=== PATIENT | female | born 1980 | race Caucasian/White ===

== ENCOUNTER 2017-01-28 22:05 | Emergency (ER) | payer BC ==
[2017-01-28 22:21] VITALS: BP 132/81
[2017-01-28] MEDS ORDERED: Sodium Chloride 0.9% 10 ML Syringe FLUSH PRN (22:44)
--- NOTE | 2017-01-29 00:29 | EDM.PDOC ---
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 She has been gone for a few days and she had rough intercourse with her and shortly after she had some bleeding. There was no clots or tissue. She has very mild cramping. She has no other symptoms such as fever, chills, cough, chest pain, shortness of breath or abdominal pain. She has no dysuria or hematuria. Onset: Sudden Duration: Hour(s): Location: Reports: Pelvis Quality: Reports: Other (cramp) Severity: Mild Improves with: Reports: None Worsens with: Reports: None Context: Reports: Activity (after intercourse) Associated Symptoms: Reports: No Other Symptoms Lower Abdominal Pain Score (Numeric/FACES): 1 - Related Data Allergies Allergy/AdvReac Type Severity Reaction Status Date / Time No Known Allergies Allergy Verified 01/28/17 22:21 Home Meds: Home Meds ARIPiprazole [Abilify] 10 mg PO DAILY 01/28/17 [History] clomiPRAMINE HCl [Clomipramine HCl] 50 mg PO DAILY 01/28/17 [History] fluvoxaMINE [Luvox] 300 mg PO DAILY 01/28/17 [History] Past Medical History - Past Health History Medical/Surgical History: Denies Medical/Surgical History Social & Family History - Tobacco Use Smoking Status *Q: Never Smoker - Caffeine Use Caffeine Use: Reports: None - Recreational Drug Use Recreational Drug Use: No ED ROS GENERAL - Review of Systems Review Of Systems: See Below Constitutional: Reports: No Symptoms HEENT: Reports: No Symptoms Respiratory: Reports: No Symptoms Cardiovascular: Reports: No Symptoms Endocrine: Reports: No Symptoms GI/Abdominal: Reports: No Symptoms : Reports: Other (Vaginal bleeding) Musculoskeletal: Reports: No Symptoms ED EXAM - Physical Exam Exam: See Below Exam Limited By: No Limitations General Appearance: Alert, No Apparent Distress Ears: Normal External Exam Nose: Normal Inspection Head: Atraumatic, Normocephalic Neck: Normal Inspection Respiratory/Chest: No Respiratory Distress, Lungs Clear, Normal Breath Sounds Cardiovascular: Regular Rate, Rhythm, No Edema, No Murmur GI/Abdominal: Soft, Non-Tender, Gravid Uterus Course - Vital Signs Last Recorded V/S: Last Vital Signs Temp 98.7 F 01/28/17 22:17 Pulse 76 01/28/17 22:17 Resp 16 01/28/17 22:17 BP 132/81 01/28/17 22:17 Pulse Ox 100 01/28/17 22:17 - Orders/Labs/Meds Orders: Active Orders 24 hr Category Date Time Status Cardiac Monitoring [RC] . DIRECTED Care 01/28/17 22:44 Active Pelvic Exam, Set Up [RC] ASDIRECTED Care 01/28/17 22:46 Active Peripheral IV Care [RC] . DIRECTED Care 01/28/17 22:45 Active OB Ltd 1 or More Fetus [US] Stat Exams 01/28/17 22:46 Taken ABO/RH TYPE [BBK] Stat Lab 01/28/17 23:10 Received Sodium Chloride 0.9% [Saline Flush] Med 01/28/17 22:44 Active 10 ml FLUSH ASDIRECTED PRN Peripheral IV Insertion Adult [OM.PC] Stat Oth 01/28/17 22:44 Ordered Medication Orders Sodium Chloride (Saline Flush) 10 ml FLUSH ASDIRECTED PRN PRN Reason: Keep Vein Open Labs: Laboratory Tests 01/28/17 Range/Units 23:10 WBC 9.45 (3.98-10.04) K/mm3 RBC 4.70 (3.98-5.22) M/mm3 Hgb 13.4 (11.2-15.7) gm/L Hct 38.2 (34.1-44.9) % MCV 81.3 (79.4-94.8) fl MCH 28.5 (25.6-32.2) pg MCHC 35.1 (32.2-35.5) g/dl RDW Std Deviation 38.7 (36.4-46.3) fL Plt Count 227 (182-369) K/mm3 MPV 9.8 (9.4-12.3) fl Neut % (Auto) 56.4 (34.0-71.1) % Lymph % (Auto) 32.9 (19.3-51.7) % Adams % (Auto) 6.2 (4.7-12.5) % Eos % (Auto) 3.2 (0.7-5.8) Baso % (Auto) 0.1 (0.1-1.2) % Neut # (Auto) 5.33 (1.56-6.13) K/mm3 Lymph # (Auto) 3.11 (1.18-3.74) K/mm3 Adams # (Auto) 0.59 H (0.24-0.36) K/mm3 Eos # (Auto) 0.30 (0.04-0.36) K/mm3 Baso # (Auto) 0.01 (0.01-0.08) K/mm3 Manual Slide Review Normal smear Meds: Medications Generic Name Dose Route Start Last Admin Trade Name Freq PRN Reason Stop Dose Admin Sodium Chloride 10 ml 01/28/17 22:44 Saline Flush FLUSH ASDIRECTED PRN Keep Vein Open - Re-Assessments/Exams Free Text/Narrative Re-Assessment/Exam: 01/29/17 00:27 I ordered an IV saline lock, labs and an US. Her CBC looks good. Her blood type is O positive. Her US shows gestational age by ultrasound 15 weeks 2 days. NEGAR July 20. Estimated weight 121grams. There is no problems with the placenta. I will have her do pelvic rest and follow up with Dr Ayers. Departure - Departure Time of Disposition: 00:30 Disposition: Home, Self-Care 01 Condition: Good Clinical Impression: Vaginal bleeding before 22 weeks gestation Qualifiers: Weeks of gestation: 15 weeks Qualified Code(s): Z3A.15 - 15 weeks gestation of - Discharge Information Referrals: Maria E Ayers MD [Primary Care Provider] - 1 Week Forms: ED Department Discharge Additional Instructions: Pelvic rest until you see Dr Ayers. No sexual intercourse and no heavy lifting. Please return if you have more bleeding or pain. - My Orders Last 24 Hours: My Active Orders 01/28/17 22:44 Cardiac Monitoring [RC] . DIRECTED Sodium Chloride 0.9% [Saline Flush] 10 ml FLUSH ASDIRECTED PRN Peripheral IV Insertion Adult [OM.PC] Stat 01/28/17 22:45 Peripheral IV Care [RC] . DIRECTED 01/28/17 22:46 Pelvic Exam, Set Up [RC] ASDIRECTED OB Ltd 1 or More Fetus [US] Stat 01/28/17 23:10 ABO/RH TYPE [BBK] Stat - Assessment/Plan Last 24 Hours: My Active Orders 01/28/17 22:44 Cardiac Monitoring [RC] . DIRECTED Sodium Chloride 0.9% [Saline Flush] 10 ml FLUSH ASDIRECTED PRN Peripheral IV Insertion Adult [OM.PC] Stat 01/28/17 22:45 Peripheral IV Care [RC] . DIRECTED 01/28/17 22:46 Pelvic Exam, Set Up [RC] ASDIRECTED OB Ltd 1 or More Fetus [US] Stat 01/28/17 23:10 ABO/RH TYPE [BBK] Stat
--- NOTE | 2017-01-29 10:14 | US ---
Limited obstetrical ultrasound: Multiple real-time images were obtained transabdominally. Comparison: No previous study. Dates: LMP: ? Current ultrasound: NEGAR 07/20/17, gestational age 15 weeks 2 days presentation: Cephalic Placenta: Posterior with no findings of placenta previa or placental abruption Amniotic fluid: Amniotic fluid appears within normal limits. Measurements: BPD: 2.81 cm - 15 weeks 0 days Head circumference: 11.24 cm - 15 weeks 3 days Abdominal circumference: 9.18 cm - 15 weeks 2 days Femur length: 1.80 cm - 15 weeks 2 days Estimated weight: 121 g (4 ounces), estimated weight at the 72nd percentile for age Heart rate: 146 bpm Cervical length: 3.7 cm Maternal ovaries are within normal limits. Impression: 1. Single intrauterine fetus. Dates as noted above. 2. Posterior placenta with no findings of placenta previa or abruption. 3. Nothing acute is appreciated on obstetrical ultrasound exam. Diagnostic code #1 I agree with preliminary report issued by [facility] (ad report finalized on 01/29/17, 12:56 AM Central Time)
== END 2017-01-29 00:43 | disposition home or self-care (01) ==
LOC: JD.ED 22:05
DX: O20.9 Hemorrhage in early pregnancy, unspecified (principal); Z79.899 Other long term (current) drug therapy; Z3A.15 15 weeks gestation of pregnancy
CPT/HCPCS: 36415; 76815; 76815-26; 85025; 86900; 86901; 99283; 99284-25

== ENCOUNTER 2017-01-30 07:38 | Emergency (ER) | payer BC ==
[2017-01-30] MEDS ORDERED: Dextrose 5%-0.9% NaCl 1,000 ML IV SCH (07:45)
[2017-01-30 07:48] VITALS: BP 134/86
--- NOTE | 2017-01-30 07:51 | EDM.PDOC ---
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 States bleeding was noticed after having a fairly large hard constipated stools morning. Sometimes she has a Lori there is some bleeding with wiping. She is about 15 weeks gestation by ultrasound done 2 days ago he was 15 weeks and 2 days therefore she is 15 weeks and 4 days at this time. movement appreciated on ultrasound. If the bleeding is coming from the vagina or the rectum. She is recognized that she is significantly constipated. She is taking MiraLAX once daily. Plan will have a look with the speculum see if we can identify source of bleeding she may well have an anal fissure or hemorrhoids etc. Onset: Unknown/Unsure, Other (Eating from the perineum perirectal or vagina has been going on off and on for the last several weeks.) Onset Date: 01/30/17 Onset Time: 07:00 (With bowel movement this morning) Duration: Minutes: Location: Reports: Other Quality: Reports: Dull (Dull achy pressure discomfort across the lower abdomen) Severity: Mild Improves with: Reports: None Worsens with: Reports: None, Other, Movement (Bleeding stops spontaneously.) Context: Reports: Other (Bowel movement). Denies: Activity, Exercise, Lifting, Sick Contact, Trauma Associated Symptoms: Reports: No Other Symptoms Treatments RECORD MAKER: Reports: Other (see below) (None.) Lower Abdomen Pain Score (Numeric/FACES): 1 - Related Data Allergies Allergy/AdvReac Type Severity Reaction Status Date / Time No Known Allergies Allergy Verified 01/30/17 07:43 Home Meds: Home Meds ARIPiprazole [Abilify] 10 mg PO DAILY 01/28/17 [History] clomiPRAMINE HCl [Clomipramine HCl] 50 mg PO DAILY 01/28/17 [History] fluvoxaMINE [Luvox] 300 mg PO DAILY 01/28/17 [History] Past Medical History - Past Health History Medical/Surgical History: Denies Medical/Surgical History : 1 Para: 0 Social & Family History - Tobacco Use Smoking Status *Q: Never Smoker - Caffeine Use Caffeine Use: Reports: None - Recreational Drug Use Recreational Drug Use: No - Living Situation & Occupation Living situation: Reports: Occupation: Unemployed ED ROS GENERAL - Review of Systems Review Of Systems: See Below Constitutional: Reports: No Symptoms HEENT: Reports: No Symptoms Respiratory: Reports: No Symptoms Cardiovascular: Reports: No Symptoms Endocrine: Reports: No Symptoms GI/Abdominal: Reports: Abdominal Pain, Constipation : Reports: Other (Not sure she's bleeding per vagina or not. She is 15 weeks and 4 days gestation. 1 para 0) Musculoskeletal: Reports: Back Pain Skin: Reports: No Symptoms Neurological: Reports: No Symptoms Psychiatric: Reports: No Symptoms Hematologic/Lymphatic: Reports: No Symptoms Immunologic: Reports: No Symptoms ED EXAM - Physical Exam Exam: See Below Exam Limited By: No Limitations General Appearance: Alert, WD/WN, No Apparent Distress GI/Abdominal Exam: Normal Bowel Sounds, Soft, Non-Tender, No Organomegaly, Other (Gravid uterus palpable 3cm above the pubic symphysis compatible with 15 week gestation.) Rectal Exam: Normal Exam (There is a small anal fissure at the 12 o'clock position with no active bleeding present.). No: Decreased Rectal Tone, Fecal Impaction, Heme + Stool, Heme - Stool, Hemorrhoids, Perirectal Abscess (Female) Exam: Cervical Lesions (Cervical erosions are evident circumferentially around the cervical os. These were cauterized with silver nitrate. They are very superficial there was several old blood clots but are small in stringy in the vagina that were removed with 4 x 4 ring forceps. The vertex is otherwise closed.), Enlarged Uterus (Correlates with 15 week gestation.) Heart Tones: Present Movement: Active Back Exam: Normal Inspection, Full Range of Motion. No: CVA Tenderness (L), CVA Tenderness (R) Extremities: Normal Inspection, Normal Range of Motion, Non-Tender, Normal Capillary Refill Neurological: Alert, Oriented, CN II-XII Intact, Normal Cognition, Normal Gait Psychiatric: Normal Affect, Normal Mood Skin Exam: Warm, Dry, Intact, Normal Color, No Rash Course - Vital Signs Last Recorded V/S: Last Vital Signs Temp 36.4 C 01/30/17 07:44 Pulse 91 01/30/17 07:44 Resp 16 01/30/17 07:44 BP 134/86 01/30/17 07:44 Pulse Ox 98 01/30/17 07:44 - Orders/Labs/Meds Orders: Active Orders 24 hr Category Date Time Status CBC WITH MANUAL DIFF [HEME] Stat Lab 01/30/17 07:41 Stop Req COMPREHENSIVE METABOLIC PN,CMP [CHEM] Stat Lab 01/30/17 07:41 Stop Req HCG QUANTITATIVE,SERUM [CHEM] Stat Lab 01/30/17 07:41 Stop Req URINALYSIS W/MICROSCOPIC [UA W/MICROSCOPIC] [URIN] Stat Lab 01/30/17 08:05 Received Meds: Medications Discontinued Medications Generic Name Dose Route Start Last Admin Trade Name Marleny PRN Reason Stop Dose Admin Dextrose/Sodium Chloride 1,000 mls @ 150 mls/hr 01/30/17 07:45 Dextrose 5%-Normal Saline IV ASDIRECTED WILEY - Radiology Interpretation Free Text/Narrative:: 36-year-old female who is 1 para 0 presents to the ED with bleeding from the perineum either perirectal or vaginal area she is not sure. If bleeding this morning seemed to occur after having a Bharath suggesting inguinal source of bleeding. She is badly constipated and has been for a lengthy period of time. Using MiraLAX powder 17 g daily. Bleeding has stopped spontaneously but is noted mostly with wiping but drips into the toilet as well after bowel movement. Into the ED 2 days ago had a complete ultrasound done which showed 15 weeks and today week gestation with passage posterior placenta and no abnormalities appreciated on ultrasound. Plan I'm going to go ahead and have a look with the speculum to see if there is no bleeding from the vagina. The anus to see if there is an anal fissure or internal hemorrhoids with anal scalp if needed. Urinalysis ordered. - Re-Assessments/Exams Free Text/Narrative Re-Assessment/Exam: 01/30/17 08:21 speculum exam reveals cervical erosions in 3 or 4 areas were cauterized with silver nitrate. The cervical os is closed. There was a few stringy clots within the vagina that were removed by ring forceps and 4 x 4. The anus itself has a small anal fissure at these 12 o'clock position but is not actively bleeding. No external hemorrhoids and no internal hemorrhoids were appreciated on examination. Patient reassured at length. We'll bump her MiraLAX to 2 scoops one day 1 scoop the next day and alternating in this fashion to keep her bowels more regular. Ultrasound reveals very active fetus. At this time nothing serious to worry about. Follow-up with DIRECTOR INFORMATION as planned. Departure - Departure Time of Disposition: 08:16 Disposition: Home, Self-Care 01 Condition: Fair Clinical Impression: Second trimester , Vaginal bleeding before 22 weeks gestation, Cervical erosion, Constipation by delayed colonic transit - Discharge Information Referrals: Maria E Ayers MD [Primary Care Provider] - Additional Instructions: Evaluation in the emergency room today in regards to bleeding per vagina during . You're currently 15 weeks and 4 days gestation by ultrasound. The noted per vagina this morning and appreciated 2 days ago as well. I had a good look at that ultrasound done 2 days ago and it was 15 weeks and 22 days gestation with everything looking perfectly normal. This morning therefore we have elected the cervix with a speculum and there was a cervical erosion which basically means a lot of extra blood supply to the cervix with it looking raw like it had been dragged on the sidewalk or scraped. I therefore cauterize the areas that had been bleeding and there was some old clots in the vagina that were removed. Rectal exam shows a tiny anal fissure at the opening of the anus at the 12 o'clock position. It is not gaping and has not been recently bleeding. Rectal exam was otherwise completely normal. Constipation remains an issue and I suggest increasing MiraLAX to 17 g twice daily and alternating with once daily to make sure that the bowel stay nice and soft and regular. At this time nothing serious appears to be present. May notice some bleeding intermittently again after intercourse during her . Lungs it stops right away and doesn't continue there is really nothing to worry about. - My Orders Last 24 Hours: My Active Orders 01/30/17 07:41 CBC WITH MANUAL DIFF [HEME] Stat COMPREHENSIVE METABOLIC PN,CMP [CHEM] Stat HCG QUANTITATIVE,SERUM [CHEM] Stat 01/30/17 08:05 URINALYSIS W/MICROSCOPIC [UA W/MICROSCOPIC] [URIN] Stat - Assessment/Plan Last 24 Hours: My Active Orders 01/30/17 07:41 CBC WITH MANUAL DIFF [HEME] Stat COMPREHENSIVE METABOLIC PN,CMP [CHEM] Stat HCG QUANTITATIVE,SERUM [CHEM] Stat 01/30/17 08:05 URINALYSIS W/MICROSCOPIC [UA W/MICROSCOPIC] [URIN] Stat
== END 2017-01-30 08:50 | disposition home or self-care (01) ==
LOC: JD.ED 07:38
DX: O20.9 Hemorrhage in early pregnancy, unspecified (principal); O99.612 Diseases of the digestive system complicating pregnancy, second trimester; K59.01 Slow transit constipation; O99.89 Other specified diseases and conditions complicating pregnancy, childbirth and the puerperium; N86 Erosion and ectropion of cervix uteri; Z79.899 Other long term (current) drug therapy; Z3A.15 15 weeks gestation of pregnancy
CPT/HCPCS: 81001; 87086; 99283; 99284

== ENCOUNTER 2017-07-14 02:10 | Inpatient (IN) | payer BC ==
[2017-07-14] MEDS ORDERED: Sodium Chloride 0.9% 10 ML Syringe FLUSH PRN ×2 (03:37→20:54)
[2017-07-14] MEDS ORDERED: Lidocaine 1% 50 ML MDV INJECT ONE (03:37)
[2017-07-14] MEDS ORDERED: Ampicillin 2 GM in Sodium Chloride 0.9% 100 ML IV ONE (04:00)
[2017-07-14] MEDS ORDERED: Oxytocin/Lactated Ringers 10 UNIT/1,000 ML BAG IV SCH (04:30)
[2017-07-14] MEDS: Lactated Ringers 1,000 ML IV SCH ×5 (04:40→15:45)
[2017-07-14] MEDS ORDERED: diphenhydrAMINE 50 MG/ML SDV IVPUSH PRN ×3 (07:59→20:54)
[2017-07-14] MEDS ORDERED: fentaNYL 100 MCG/2 ML SDV EPIDUR PRN (07:59)
[2017-07-14] MEDS ORDERED: ePHEDrine 50 MG/ML SDV IVPUSH PRN ×2 (07:59→20:54)
[2017-07-14] MEDS: Bupivacaine/fentaNYL/NS 100 ML Bag EPIDUR SCH ×2 (08:27→15:46)
--- NOTE | 2017-07-14 08:32 | PCM.PREANE ---
Preanesthetic Assessment - Anesthesia/Transfusion/Family Hx Anesthesia History: Prior Anesthesia Without Reaction Family History of Anesthesia Reaction: No Transfusion History: No Prior Transfusion(s) - Review of Systems General: No Symptoms Pulmonary: No Symptoms Cardiovascular: No Symptoms Gastrointestinal: No Symptoms Neurological: No Symptoms Other: Reports: None - Physical Assessment Pulse: 109 O2 Sat by Pulse Oximetry: 99 Respiratory Rate: 14 Blood Pressure: 120/68 Temperature: 36.3 C Vital Signs: Last Vital Signs Temp 36.7 C 07/14/17 03:37 Pulse 89 07/14/17 03:37 Resp 14 07/14/17 03:37 BP 116/82 07/14/17 03:37 Pulse Ox 99 07/14/17 03:37 Height: 1.73 m Weight: 146.057 kg ASA Class: 2 Mental Status: Alert & Oriented x3 Airway Class: Mallampati = 2 Dentition: Reports: Normal Dentition Thyro-Mental Finger Breadths: 3 Mouth Opening Finger Breadths: 3 ROM/Head Extension: Full Lungs: Clear to Auscultation, Normal Respiratory Effort Cardiovascular: Regular Rate, Regular Rhythm - Lab Values: Laboratory Last Values WBC 10.34 K/mm3 (3.98-10.04) H 07/14/17 04:05 RBC 4.57 M/mm3 (3.98-5.22) 07/14/17 04:05 Hgb 12.7 gm/L (11.2-15.7) 07/14/17 04:05 Hct 37.6 % (34.1-44.9) 07/14/17 04:05 MCV 82.3 fl (79.4-94.8) 07/14/17 04:05 MCH 27.8 pg (25.6-32.2) 07/14/17 04:05 MCHC 33.8 g/dl (32.2-35.5) 07/14/17 04:05 RDW Std Deviation 41.7 fL (36.4-46.3) 07/14/17 04:05 Plt Count 243 K/mm3 (182-369) 07/14/17 04:05 MPV 10.5 fl (9.4-12.3) 07/14/17 04:05 Neut % (Auto) 61.9 % (34.0-71.1) 07/14/17 04:05 Lymph % (Auto) 27.0 % (19.3-51.7) 07/14/17 04:05 Parke % (Auto) 7.3 % (4.7-12.5) 07/14/17 04:05 Eos % (Auto) 2.7 (0.7-5.8) 07/14/17 04:05 Baso % (Auto) 0.2 % (0.1-1.2) 07/14/17 04:05 Neut # (Auto) 6.41 K/mm3 (1.56-6.13) H 07/14/17 04:05 Lymph # (Auto) 2.79 K/mm3 (1.18-3.74) 07/14/17 04:05 Parke # (Auto) 0.75 K/mm3 (0.24-0.36) H 07/14/17 04:05 Eos # (Auto) 0.28 K/mm3 (0.04-0.36) 07/14/17 04:05 Baso # (Auto) 0.02 K/mm3 (0.01-0.08) 07/14/17 04:05 Membrane Rupture Positive H 07/14/17 03:02 Blood Type O POSITIVE 07/14/17 04:05 Gel Antibody Screen Negative 07/14/17 04:05 - Allergies Allergies/Adverse Reactions: Allergies Allergy/AdvReac Type Severity Reaction Status Date / Time No Known Allergies Allergy Verified 01/30/17 07:43 - Anesthesia Plan Pre-Op Medication Ordered: None - Acknowledgements Anesthesia Type Planned: Epidural Pt an Appropriate Candidate for the Planned Anesthesia: Yes Alternatives and Risks of Anesthesia Discussed w Pt/Guardian: Yes Pt/Guardian Understands and Agrees with Anesthesia Plan: Yes PreAnesthesia Questionnaire - Past Health History Medical/Surgical History: Denies Medical/Surgical History Cardiovascular History: Reports: Arrhythmia, Hypertension Other Cardiovascular History: Dxed with PVCs following Holter monitor evaluation along with "irregularly irreg pulse rhythm"--no follow up or medication required per pt and per exam. HTN dx as a teen, none since age 18 Gastrointestinal History: Reports: Chronic Constipation, GERD Other Gastrointestinal History: Since infancy. Takes no medications. [employer] History: Reports: Neurological History: Reports: Headaches, Chronic Other Neuro History: Lifelong chronic headaches a few times weekly, not migraines, and they respond to tylenol. Psychiatric History: Reports: Anxiety, Depression, OCD - Past Surgical History HEENT Surgical History: Reports: Oral Surgery Other HEENT Surgeries/Procedures: [place] teeth removed 1995 Cardiovascular Surgical History: Reports: None GI Surgical History: Reports: None Neurological Surgical History: Reports: None - SUBSTANCE USE Smoking Status *Q: Never Smoker Second Hand Smoke Exposure: No Recreational Drug Use History: No - HOME MEDS Home Medications: Home Meds ARIPiprazole [Abilify] 10 mg PO DAILY 01/28/17 [History] clomiPRAMINE HCl [Clomipramine HCl] 50 mg PO DAILY 01/28/17 [History] fluvoxaMINE [Luvox] 300 mg PO DAILY 01/28/17 [History] - CURRENT (IN HOUSE) MEDS Current Meds: Current Medications Aripiprazole (Abilify) 10 mg PO DAILY WILEY Diphenhydramine HCl (Benadryl) 25 mg IVPUSH Q6H PRN PRN Reason: Itching Ephedrine Sulfate (Ephedrine Sulfate) 5 mg IVPUSH ASDIRECTED PRN PRN Reason: HYPOTENTSION Fentanyl (Sublimaze) 100 mcg EPIDUR Q3H PRN PRN Reason: PAIN Last Admin: 07/14/17 08:26 Dose: 100 mcg Fentanyl/Bupivacaine HCl (Fentanyl/Bupivacaine/Ns 2 Mcg-0.125% 100 Ml) 100 ml EPIDUR ASDIRECTED WILEY Last Admin: 07/14/17 08:27 Dose: 100 ml Fluvoxamine Maleate (Luvox) 300 mg PO DAILY WILEY Ampicillin Sodium 1 gm/ Sodium (Chloride) 100 mls @ 200 mls/hr IV Q4H WILEY Lactated Ringer's (Ringers, Lactated) 1,000 mls @ 100 mls/hr IV ASDIRECTED WILEY Last Admin: 07/14/17 08:15 Dose: 100 mls/hr Oxytocin/Lactated Ringer's (Pitocin In Lr 10 Units/1,000 Ml) 10 unit in 1,000 mls @ 12 mls/hr IV TITRATE WILEY; 2 MUNITS/MIN PRN Reason: Protocol Last Titration: 07/14/17 06:33 Dose: 4 munits/min, 24 mls/hr Oxytocin 20 unit/ Lactated (Ringer's) 1,002 mls @ 1,503 mls/hr IV TITRATE WILEY; 500 MUNITS/MIN PRN Reason: Protocol Non-Formulary Medication (Nf Drug) 1 each PO DAILY WILEY Sodium Chloride (Saline Flush) 10 ml FLUSH ASDIRECTED PRN PRN Reason: Keep Vein Open Discontinued Medications Ampicillin Sodium 2 gm/ Sodium (Chloride) 100 mls @ 200 mls/hr IV ONETIME ONE Stop: 07/14/17 04:29 Last Admin: 07/14/17 04:50 Dose: 200 mls/hr Lidocaine HCl (Xylocaine 1%) 50 ml INJECT ONETIME ONE Stop: 07/14/17 03:38
[2017-07-14] MEDS: Ampicillin 1 GM in Sodium Chloride 0.9% 100 ML IV SCH ×4 (08:46→21:28)
[2017-07-14] MEDS ORDERED: FLUVOXAMINE 150 MG PO SCH (09:00)
[2017-07-14] MEDS ORDERED: ARIPIPRAZOLE 10 MG PO SCH (09:00)
[2017-07-14] MEDS ORDERED: CLOMIPRAMINE 50 MG PO SCH (09:00)
--- NOTE | 2017-07-14 10:35 | PCM.LDHP ---
L&D History of Present Illness - General Date of Service: 07/14/17 Admit Problem/Dx: Patient Status Order with Admit Dx/Problem 07/14/17 03:45 Admission Status [Patient Status] [ADT] Routine Admission Diagnosis/Problem Admission Diagnosis/Problem Source of Information: Patient History Limitations: Reports: No Limitations - History of Present Illness Introduction:: 37 Y/O E1 P0 000 NEGAR 07/23/17 at 38 weeks 5 days estimated gestational age presented to labor and delivery after rupture membranes at 0100 hrs. on 2016. Group B strep positive. Blood type is O+ antibody screen negative initial hemoglobin hematocrit on 12/28/1712.5 and 39.5 platelets 190,000 rubella titer indicates immunity, hepatitis B surface antigen nonreactive 1 hour OB glucose screen on 04/10/17 was 98 antibody screen was negative then as well. TSH 0.99 within normal limits on 06/13/17. Hemoglobin on 06/13/1713.3 Chlamydia and GC probe were negative HIV was negative Patient has a history of PVCs cafeteria monitor has been applied. Patient is taking fluvoamine capsules 150 mg ER 2 capsules by mouth each morning Clomipramine 50 mg capsules one each morning Aripiprazole 100 mg 1 tablet each morning These medications are taken by the patient because benefits of medication outweigh the risk during because of her history of anxiety and depression and OCD. Plan labor and delivery Pain Score: 10 Improves with: Reports: None Worsens with: Reports: None Associated Symptoms: Reports: N - Related Data Allergies/Adverse Reactions: Allergies Allergy/AdvReac Type Severity Reaction Status Date / Time No Known Allergies Allergy Verified 01/30/17 07:43 Home Medications: Home Meds ARIPiprazole [Abilify] 10 mg PO DAILY 01/28/17 [History] clomiPRAMINE HCl [Clomipramine HCl] 50 mg PO DAILY 01/28/17 [History] fluvoxaMINE [Luvox] 300 mg PO DAILY 01/28/17 [History] Past Medical History - Past Health History Medical/Surgical History: Denies Medical/Surgical History Cardiovascular History: Reports: Arrhythmia, Hypertension Other Cardiovascular History: Dxed with PVCs following Holter monitor evaluation along with "irregularly irreg pulse rhythm"--no follow up or medication required per pt and per exam. HTN dx as a teen, none since age 18 Gastrointestinal History: Reports: Chronic Constipation, GERD Other Gastrointestinal History: Since infancy. Takes no medications. [employer] History: Reports: Neurological History: Reports: Headaches, Chronic Other Neuro History: Lifelong chronic headaches a few times weekly, not migraines, and they respond to tylenol. Psychiatric History: Reports: Anxiety, Depression, OCD - Past Surgical History HEENT Surgical History: Reports: Oral Surgery Other HEENT Surgeries/Procedures: Bangs teeth removed 1995 Cardiovascular Surgical History: Reports: None GI Surgical History: Reports: None Neurological Surgical History: Reports: None Social & Family History - Family History Family Medical History: Noncontributory - Tobacco Use Smoking Status *Q: Never Smoker Second Hand Smoke Exposure: No - Caffeine Use Caffeine Use: Reports: Coffee Other Caffeine Use: 1/2 cup daily - Recreational Drug Use Recreational Drug Use: No - Living Situation & Occupation Living situation: Reports: Occupation: Unemployed H&P Review of Systems - Review of Systems: Review Of Systems: See Below General: Reports: No Symptoms HEENT: Reports: No Symptoms Pulmonary: Reports: No Symptoms Cardiovascular: Reports: No Symptoms Gastrointestinal: Reports: No Symptoms Genitourinary: Reports: No Symptoms Musculoskeletal: Reports: No Symptoms Skin: Reports: No Symptoms Psychiatric: Reports: No Symptoms Neurological: Reports: No Symptoms Hematologic/Lymphatic: Reports: No Symptoms Immunologic: Reports: No Symptoms L&D Exam - Exam Exam: See Below - Vital Signs Vital Signs: Last Vital Signs Temp 97.3 F 07/14/17 08:32 Pulse 109 H 07/14/17 08:32 Resp 14 07/14/17 08:32 BP 120/68 07/14/17 08:32 Pulse Ox 99 07/14/17 08:32 Weight: 322 lb - OB Specific Fundal Height In cm: 39 Contraction Intensity: Mild to Moderate Movement: Active Heart Tones: Present Heart Tones per Min: 140 Heart Rate (FHR) Variability: Moderate (6-25 bmp) Presentation: Vertex - Oden Score Oden Score Cervix Position: Midposition Oden Score Consistency: Medium Oden Score Effacement: 51-70% Oden Score Dilation: 3-4 cm Oden Score Infant's Station: -2 Oden Score Total: 7 - Exam General: Alert, Oriented HEENT: Conjunctiva Clear, Mucosa Moist & [place], PERRLA Neck: Supple, Trachea Midline Lungs: Clear to Auscultation, Normal Respiratory Effort Cardiovascular: Regular Rate, Regular Rhythm GI/Abdominal Exam: Normal Bowel Sounds, Soft, Non-Tender, No Organomegaly, No Distention, No Abnormal Bruit, No Mass, Pelvis Stable Genitourinary: Normal external exam, Normal bimanual exam, Normal speculum exam Extremities: Normal Inspection, Normal Range of Motion, Non-Tender, No Pedal Edema, Normal Capillary Refill Skin: Warm, Dry, Intact Neurological: Reflexes Equal Bilateral Psychiatric: Alert, Normal Affect, Normal Mood - Patient Data Lab Results Last 24 hrs: Laboratory Results - last 24 hr 07/14/17 07/14/17 07/14/17 Range/Units 03:02 04:05 04:05 WBC 10.34 H (3.98-10.04) K/mm3 RBC 4.57 (3.98-5.22) M/mm3 Hgb 12.7 (11.2-15.7) gm/L Hct 37.6 (34.1-44.9) % MCV 82.3 (79.4-94.8) fl MCH 27.8 (25.6-32.2) pg MCHC 33.8 (32.2-35.5) g/dl RDW Std Deviation 41.7 (36.4-46.3) fL Plt Count 243 (182-369) K/mm3 MPV 10.5 (9.4-12.3) fl Neut % (Auto) 61.9 (34.0-71.1) % Lymph % (Auto) 27.0 (19.3-51.7) % [place] % (Auto) 7.3 (4.7-12.5) % Eos % (Auto) 2.7 (0.7-5.8) Baso % (Auto) 0.2 (0.1-1.2) % Neut # (Auto) 6.41 H (1.56-6.13) K/mm3 Lymph # (Auto) 2.79 (1.18-3.74) K/mm3 [place] # (Auto) 0.75 H (0.24-0.36) K/mm3 Eos # (Auto) 0.28 (0.04-0.36) K/mm3 Baso # (Auto) 0.02 (0.01-0.08) K/mm3 Membrane Rupture Positive H Blood Type O POSITIVE Gel Antibody Screen Negative Result Diagrams: 07/14/17 04:05 - Problem List (1) 38 weeks gestation of SNOMED Code(s): 09819273 ICD Code: Z3A.38 - 38 WEEKS GESTATION OF Status: Acute Current Visit: Yes (2) AMA (advanced maternal age) primigravida 35+ SNOMED Code(s): 15466403 ICD Code: O09.519 - SUPERVISION OF ELDERLY PRIMIGRAVIDA, UNSPECIFIED TRIMESTER Status: Acute Current Visit: Yes Qualifiers: Trimester: third trimester Qualified Code(s): O09.513 - Supervision of elderly primigravida, third trimester (3) GBS carrier SNOMED Code(s): 7383168025752 ICD Code: Z22.330 - CARRIER OF GROUP B STREPTOCOCCUS Status: Acute Current Visit: Yes (4) Asymptomatic PVCs SNOMED Code(s): 84396356 ICD Code: I49.3 - VENTRICULAR PREMATURE DEPOLARIZATION Status: Acute Current Visit: Yes (5) Anxiety and depression SNOMED Code(s): 909539204 ICD Code: F41.8 - OTHER SPECIFIED ANXIETY DISORDERS Status: Acute Current Visit: Yes (6) OCD (obsessive compulsive disorder) SNOMED Code(s): 369411835 ICD Code: F42.9 - OBSESSIVE-COMPULSIVE DISORDER, UNSPECIFIED Status: Acute Current Visit: Yes Qualifiers: Obsessive-compulsive disorder type: mixed obsessional thoughts and acts Qualified Code(s): F42.2 - Mixed obsessional thoughts and acts Problem List Initiated/Reviewed/Updated: No Orders Last 24hrs: Active Orders 24 hr Category Date Time Status Admission Status [Patient Status] [ADT] Routine ADT 07/14/17 03:45 Active Activity as Tolerated [RC] PFP Care 07/14/17 03:37 Active Communication Order [RC] ASDIRECTED Care 07/14/17 03:37 Active Communication Order [RC] ASDIRECTED Care 07/14/17 07:59 Active Cooling Warming Measures [RC] ASDIRECTED Care 07/14/17 07:59 Active Heart Tones [RC] ASDIRECTED Care 07/14/17 03:38 Active Notify Provider [RC] ASDIRECTED Care 07/14/17 07:59 Active Notify Provider [RC] PFP Care 07/14/17 03:37 Active Notify Provider [RC] PRN Care 07/14/17 03:37 Active Oxygen Therapy [RC] ASDIRECTED Care 07/14/17 07:59 Active Peripheral IV Care [RC] . DIRECTED Care 07/14/17 03:38 Active Pulse Oximetry [RC] ASDIRECTED Care 07/14/17 07:59 Active Telemetry Monitoring [Cardiac Monitoring] [RC] . Care 07/14/17 07:37 Active DIRECTED Verify Patient Consent Obtain [RC] ASDIRECTED Care 07/14/17 07:59 Active Vital Signs [RC] 20,04,12 Care 07/14/17 03:37 Active Vital Signs [RC] Q1H Care 07/14/17 07:59 Active Clear Liquid Diet [DIET] Diet 07/14/17 Breakfast Active ARIPiprazole [Abilify] Med 07/14/17 09:00 Pending 10 mg PO DAILY Ampicillin 1 gm Med 07/14/17 08:00 Active Sodium Chloride 0.9% [Normal Saline] 100 ml IV Q4H Bupivacaine/fentaNYL/NS [fentaNYL/Bupivacaine/NS 2 MCG- Med 07/14/17 08:00 Active 0.125% 100 ML] 100 ml EPIDUR ASDIRECTED Lactated Ringers [Ringers, Lactated] 1,000 ml Med 07/14/17 03:45 Active IV ASDIRECTED Non-Formulary Medication [NF Drug] Med 07/14/17 09:00 Ordered 1 each PO DAILY Oxytocin [Pitocin] 20 unit Med 07/14/17 03:45 Active Lactated Ringers [Ringers, Lactated] 1,000 ml IV TITRATE Oxytocin/Lactated Ringers [Pitocin in LR 10 Units/1,000 Med 07/14/17 04:30 Active ML] 10 unit in 1,000 ml IV TITRATE Sodium Chloride 0.9% [Saline Flush] Med 07/14/17 03:37 Active 10 ml FLUSH ASDIRECTED PRN diphenhydrAMINE [Benadryl] Med 07/14/17 07:59 Active 25 mg IVPUSH Q6H PRN ePHEDrine [ePHEDrine Sulfate] Med 07/14/17 07:59 Active 5 mg IVPUSH ASDIRECTED PRN fentaNYL [Sublimaze] Med 07/14/17 07:59 Active 100 mcg EPIDUR Q3H PRN fluvoxaMINE [Luvox] Med 07/14/17 09:00 Ordered 300 mg PO DAILY Electronic Heart Tones Ext w TOCO [WOMSER] Oth 07/14/17 03:37 Ordered Routine Electronic Heart Tones Internal [WOMSER] Per Unit Oth 07/14/17 03:37 Ordered Routine Peripheral IV Insertion Adult [OM.PC] Routine Oth 07/14/17 03:37 Ordered Resuscitation Status Routine Resus Stat 07/14/17 03:37 Ordered Medication Orders Aripiprazole (Abilify) 10 mg PO DAILY WILEY Diphenhydramine HCl (Benadryl) 25 mg IVPUSH Q6H PRN PRN Reason: Itching Ephedrine Sulfate (Ephedrine Sulfate) 5 mg IVPUSH ASDIRECTED PRN PRN Reason: HYPOTENTSION Fentanyl (Sublimaze) 100 mcg EPIDUR Q3H PRN PRN Reason: PAIN Last Admin: 07/14/17 08:26 Dose: 100 mcg Fentanyl/Bupivacaine HCl (Fentanyl/Bupivacaine/Ns 2 Mcg-0.125% 100 Ml) 100 ml EPIDUR ASDIRECTED WILEY Last Admin: 07/14/17 08:27 Dose: 100 ml Fluvoxamine Maleate (Luvox) 300 mg PO DAILY WILEY Ampicillin Sodium 1 gm/ Sodium (Chloride) 100 mls @ 200 mls/hr IV Q4H WILEY Last Admin: 07/14/17 08:46 Dose: 200 mls/hr Lactated Ringer's (Ringers, Lactated) 1,000 mls @ 100 mls/hr IV ASDIRECTED WILEY Last Admin: 07/14/17 08:48 Dose: 100 mls/hr Infusion: 07/14/17 08:48 Dose: 100 mls/hr Admin: 07/14/17 08:15 Dose: 100 mls/hr Infusion: 07/14/17 08:15 Dose: 100 mls/hr Admin: 07/14/17 04:40 Dose: 100 mls/hr Oxytocin/Lactated Ringer's (Pitocin In Lr 10 Units/1,000 Ml) 10 unit in 1,000 mls @ 12 mls/hr IV TITRATE WILEY; 2 MUNITS/MIN PRN Reason: Protocol Last Titration: 07/14/17 10:07 Dose: 10 munits/min, 60 mls/hr Titration: 07/14/17 09:10 Dose: 8 munits/min, 48 mls/hr Titration: 07/14/17 06:33 Dose: 4 munits/min, 24 mls/hr Admin: 07/14/17 05:26 Dose: 2 munits/min, 12 mls/hr Oxytocin 20 unit/ Lactated (Ringer's) 1,002 mls @ 1,503 mls/hr IV TITRATE WILEY; 500 MUNITS/MIN PRN Reason: Protocol Non-Formulary Medication (Nf Drug) 1 each PO DAILY WILEY Sodium Chloride (Saline Flush) 10 ml FLUSH ASDIRECTED PRN PRN Reason: Keep Vein Open Assessment/Plan Comment:: Plan delivery
[2017-07-14] MEDS ORDERED: Bupivacaine 0.5% 30 ML SDV ONE (17:45)
[2017-07-14] MEDS ORDERED: Morphine PF 1 MG/ML Amp ONE (17:49)
[2017-07-14] MEDS ORDERED: Citric Acid/Sodium Citrate Solution 30 ML Cup PO ONE (17:56)
[2017-07-14] MEDS ORDERED: Metoclopramide 10 MG/2 ML SDV IVPUSH ONE (17:56)
[2017-07-14] MEDS ORDERED: ceFAZolin 2 GM in Premix Bag 1 BAG IV ONE (17:58)
--- NOTE | 2017-07-14 18:02 | PCM.SN ---
- Free Text/Narrative Note: Contactions throughout the day with augmentation with oxytocin. Cervix at 1000 2 -3 and now at 1745 4 cm dilated, susspect occiput posterior. Also having decelerations and possible nuchal cord. Discusses co-morbidity and co-mortality with patient and [id number]. All questions answered to voiced satisfaction and will proceed with section.
[2017-07-14] MEDS ORDERED: Phenylephrine 1% 10 MG/ML SDV ONE (18:06)
[2017-07-14] MEDS ORDERED: ceFAZolin 1 GM Vial ONE ×2 (18:06→18:43)
[2017-07-14] MEDS ORDERED: Citric Acid/Sodium Citrate Solution 30 ML Cup ONE (18:10)
[2017-07-14] MEDS ORDERED: Metoclopramide 10 MG/2 ML SDV ONE (18:10)
[2017-07-14] MEDS ORDERED: Lidocaine 2% with EPINEPHrine 1:200,000 20 ML SDV ONE (18:13)
[2017-07-14] MEDS ORDERED: Oxytocin 10 Units/1 ML SDV ONE (18:49)
[2017-07-14] MEDS ORDERED: Ketorolac 30 MG/ML SDV ONE (18:56)
[2017-07-14] MEDS ORDERED: Lactated Ringers 1,000 ML ONE (18:58)
[2017-07-14] MEDS ORDERED: fentaNYL 250 MCG/5 ML SDV IVPUSH PRN (19:19)
--- NOTE | 2017-07-14 19:20 | PCM.POSTAN ---
POST ANESTHESIA ASSESSMENT - MENTAL STATUS Mental Status: Alert, Oriented - VITAL SIGNS Pulse Rate: 72 SaO2: 95 Resp Rate: 20 Blood Pressure: 109/62 Temperature: 36.9 C - RESPIRATORY Respiratory Status: Respiratory Rate WNL, Airway Patent, O2 Saturation Stable, Supplemental Oxygen - CARDIOVASCULAR CV Status: Pulse Rate WNL, Blood Pressure Stable - GASTROINTESTINAL GI Status: No Symptoms - PAIN Pain Score: 0 - POST OP HYDRATION Hydration Status: Adequate & Stable - OBSERVATIONS Free Text/Narrative:: no anesthesia complications noted
--- NOTE | 2017-07-14 19:42 | PCM.OPNOTE ---
- General Post-Op/Procedure Note Date of Surgery/Procedure: 07/14/17 Operative Procedure(s): Low segment transverse via Pfannenstiel incision (inferior cervical laceration sutured at time of surgery) (do not recommend VBACtrial of labor after ) vacuum extraction assisted 2 in the green less than 15 seconds Pre Op Diagnosis: Failure to progress, decelerations and intolerance of labor, advanced maternal age, group B strep positive, history of anxiety and OCD , history of PVCs Post-Op Diagnosis: Same plus inferior left extension of the incision into the cervix sutured, direct occiput posterior presentation. Anesthesia Technique: Epidural Primary Surgeon: Cody Mckoy Secondary Surgeon: Barney Dickerson Jr Anesthesia Provider: Cosme Chang Reason Operations Lead Was Necessary: Patient obese, difficulty of surgery, and to decrease cold comorbidity and co- mortality assist in surgery and retraction Role of Operations Lead: Patient obese, difficulty of surgery, and to decrease cold comorbidity and co- mortality assist in surgery and retraction Fluid Replacement, Intraop: 1,800 Output, Urine Amount: 250 EBL in mLs: 450 Drain/Tube Comments:: Del Castillo to gravity drainage closed system Complications: None Condition: Good Free Text/Narrative:: Patient was transported to operating room #1 and placed under epidural anesthesia in the supine position with a wedge under the right hip and right flank. CDs in place and functioning prior surgery. Ancef 3 g given intravenously prior surgery. Patient draped with C drape and prepared and draped in a sterile fashion. Timeout performed confirming name, date of and procedure as primary section. Adequate level of anesthesia was confirmed. The was brought to the operating room. Injecting 20 mL of 0.5 % Marcaine in the subcutaneous area of the planned incision Pfannenstiel incision was made and care was sharp section to into the anterior fascia. The cavity was entered without difficulty bladder flap was created and pushed caudad. Low segment transverse was performed clear amnionic fluid upon entry into the amnionic cavity. The fetus was direct occiput posterior. The was delivered by carefully rotating the head and applying vacuum 2 and 15 seconds or less in the green. Delivery of the female liveborn at 1838 hrs. on Saturday07/14/2017. Dr. Monk director drug present and cared for the . Weight 3100 g/6 lbs. 13 oz. Apgars 7/8. Routine cord blood collected from the three-vessel cord. The placenta was removed manually. Cervical patency assured. Sponge needle pack asthma sharp count correct times one. The uterine incision closed first closing a inferior left extension of the incision through the cervix using 0 Monocryl running locking suture. Subsequently the uterine incision closed with 0 Monocryl 2 first layer running locking closure with good hemostasis, second layer running locking suture. One additional figure-of- eight with 0 Monocryl for hemostasis. Both tubes and ovaries were normal. Clots were cleaned from the gutters and cul-de-sac. Uterus placed into the abdominal cavity. Sponge needle pack asthma sharp count correct 2. The uterine incision inspected no bleeding. The anterior fascia was then closed with #1 PDS. Subcutaneous tissue was irrigated and closed in 3 interrupted sutures of 0 Monocryl. Skin was approximated with 3-0 Monocryl [place] needle. Dermabond [place] applied. Clots were cleaned from the vagina. Patient transported postanesthesia care unit in satisfactory condition. No blood transfusions were required. Due to the inferior left cervical extension of the incision are recommended to the patient no /TOLAC attempt with future pregnancies, recommend repeat section.
[2017-07-14] MEDS ORDERED: Docusate Sodium 100 MG Cap PO PRN (20:54)
[2017-07-14] MEDS ORDERED: Lanolin 100% Cream 7 GM Tube TOP PRN (20:54)
[2017-07-14] MEDS ORDERED: Naloxone 0.4 MG/ML SDV IVPUSH PRN (20:54)
[2017-07-14] MEDS ORDERED: Ondansetron 4 MG/2 ML SDV IV PRN (20:54)
[2017-07-14] MEDS ORDERED: Acetaminophen 325 MG Tab PO PRN (20:54)
[2017-07-14] MEDS ORDERED: Acetaminophen/oxyCODONE 325-5 MG Tab PO PRN (20:54)
[2017-07-14] MEDS ORDERED: Dextrose 5%-Lactated Ringers 1,000 ML IV SCH (20:54)
[2017-07-14] MEDS ORDERED: Bupivacaine 0.25% 10 ML SDV ONE (22:22)
[2017-07-14] MEDS: Simethicone 80 MG Tab.Chew PO SCH (23:52)
[2017-07-15] MEDS: Ketorolac 30 MG/ML SDV IVPUSH SCH ×3 (00:57→12:51)
--- NOTE | 2017-07-15 08:13 | PCM.SN ---
- Free Text/Narrative Note: Postop day one/ day 1 Afebrile, no heavy vaginal bleeding, uterus involuting normally, incision appears normal slight bloody drainage consistent with normal section. No leg cramping. Encouraged ambulation. Discontinue Del Castillo.
[2017-07-15] MEDS: CLOMIPRAMINE HCL 50 MG PO SCH (09:48)
[2017-07-15] MEDS: FLUVOXAMINE 150 MG PO SCH (09:48)
[2017-07-15] MEDS: Simethicone 80 MG Tab.Chew PO SCH ×4 (09:52→21:04)
[2017-07-15] MEDS: Ibuprofen 600 MG Tab PO PRN (18:55)
[2017-07-16] MEDS: Ibuprofen 600 MG Tab PO PRN ×4 (00:40→19:48)
--- NOTE | 2017-07-16 06:53 | PCM.SN ---
- Free Text/Narrative Note: Post day 2/postop day 2 Afebrile no heavy vaginal bleeding uterus involuting normally incision appears normal no leg cramping probably home tomorrow.
[2017-07-16] MEDS: Simethicone 80 MG Tab.Chew PO SCH ×4 (10:27→21:07)
[2017-07-16] MEDS: FLUVOXAMINE 150 MG PO SCH (10:28)
[2017-07-16] MEDS: CLOMIPRAMINE HCL 50 MG PO SCH (10:29)
[2017-07-17 04:15] VITALS: BP 127/78
[2017-07-17] MEDS: Ibuprofen 600 MG Tab PO PRN (06:13)
--- NOTE | 2017-07-17 06:26 | PCM.DCSUM1 ---
Discharge Summary - Hospital Course Free Text/Narrative:: [facility] Post-Op/Procedure Note Patient Name: MARLY GARIBAY Date of : 80 Patient Status: Inpatient Attending Provider: Cody Mckoy Date: 07/14/17 19:35 Initialization Date: 07/14/17 19:35 - General Post-Op/Procedure Note Date of Surgery/Procedure: 07/14/17 Operative Procedure(s): Low segment transverse via Pfannenstiel incision (inferior cervical laceration sutured at time of surgery) (do not recommend VBACtrial of labor after ) vacuum extraction assisted 2 in the green less than 15 seconds Pre Op Diagnosis: Failure to progress, decelerations and intolerance of labor, advanced maternal age, group B strep positive, history of anxiety and OCD , history of PVCs Post-Op Diagnosis: Same plus inferior left extension of the incision into the cervix sutured, direct occiput posterior presentation. Anesthesia Technique: Epidural Primary Surgeon: Cody Mckoy Secondary Surgeon: Barney Dickerson Jr Anesthesia Provider: Cosme Chang Reason Global Program Director Was Necessary: Patient obese, difficulty of surgery, and to decrease cold comorbidity and co- mortality assist in surgery and retraction Role of Global Program Director: Patient obese, difficulty of surgery, and to decrease cold comorbidity and co- mortality assist in surgery and retraction Fluid Replacement, Intraop: 1,800 Output, Urine Amount: 250 EBL in mLs: 450 Drain/Tube Comments:: Del Castillo to gravity drainage closed system Complications: None Condition: Good Free Text/Narrative:: Patient was transported to operating room #1 and placed under epidural anesthesia in the supine position with a wedge under the right hip and right flank. CDs in place and functioning prior surgery. Ancef 3 g given intravenously prior surgery. Patient draped with C drape and prepared and draped in a sterile fashion. Timeout performed confirming name, date of and procedure as primary section. Adequate level of anesthesia was confirmed. The was brought to the operating room. Injecting 20 mL of 0.5 % Marcaine in the subcutaneous area of the planned incision Pfannenstiel incision was made and care was sharp section to into the anterior fascia. The cavity was entered without difficulty bladder flap was created and pushed caudad. Low segment transverse was performed clear amnionic fluid upon entry into the amnionic cavity. The fetus was direct occiput posterior. The was delivered by carefully rotating the head and applying vacuum 2 and 15 seconds or less in the green. Delivery of the female liveborn at 1838 hrs. on Saturday07/14/2017. Dr. Monk medical office administrator present and cared for the . Weight 3100 g/6 lbs. 13 oz. Apgars 7/8. Routine cord blood collected from the three-vessel cord. The placenta was removed manually. Cervical patency assured. Sponge needle pack asthma sharp count correct times one. The uterine incision closed first closing a inferior left extension of the incision through the cervix using 0 Monocryl running locking suture. Subsequently the uterine incision closed with 0 Monocryl 2 first layer running locking closure with good hemostasis, second layer running locking suture. One additional figure-of- eight with 0 Monocryl for hemostasis. Both tubes and ovaries were normal. Clots were cleaned from the gutters and cul-de-sac. Uterus placed into the abdominal cavity. Sponge needle pack asthma sharp count correct 2. The uterine incision inspected no bleeding. The anterior fascia was then closed with #1 PDS. Subcutaneous tissue was irrigated and closed in 3 interrupted sutures of 0 Monocryl. Skin was approximated with 3-0 Monocryl Rancho needle. Dermabond Preneo applied. Clots were cleaned from the vagina. Patient transported postanesthesia care unit in satisfactory condition. No blood transfusions were required. Due to the inferior left cervical extension of the incision are recommended to the patient no /TOLAC attempt with future pregnancies, recommend repeat section. HPI Initial Comments: [facility] Post-Op/Procedure Note Patient Name: MARLY GARIBAY Date of : 80 Patient Status: Inpatient Attending Provider: Cody Mckoy Date: 07/14/17 19:35 Initialization Date: 07/14/17 19:35 - General Post-Op/Procedure Note Date of Surgery/Procedure: 07/14/17 Operative Procedure(s): Low segment transverse via Pfannenstiel incision (inferior cervical laceration sutured at time of surgery) (do not recommend VBACtrial of labor after ) vacuum extraction assisted 2 in the green less than 15 seconds Pre Op Diagnosis: Failure to progress, decelerations and intolerance of labor, advanced maternal age, group B strep positive, history of anxiety and OCD , history of PVCs Post-Op Diagnosis: Same plus inferior left extension of the incision into the cervix sutured, direct occiput posterior presentation. Anesthesia Technique: Epidural Primary Surgeon: Cody Mckoy Secondary Surgeon: Barney Dickerson Jr Anesthesia Provider: Cosme Chang Reason Global Program Director Was Necessary: Patient obese, difficulty of surgery, and to decrease cold comorbidity and co- mortality assist in surgery and retraction Role of Global Program Director: Patient obese, difficulty of surgery, and to decrease cold comorbidity and co- mortality assist in surgery and retraction Fluid Replacement, Intraop: 1,800 Output, Urine Amount: 250 EBL in mLs: 450 Drain/Tube Comments:: Del Castillo to gravity drainage closed system Complications: None Condition: Good Free Text/Narrative:: Patient was transported to operating room #1 and placed under epidural anesthesia in the supine position with a wedge under the right hip and right flank. CDs in place and functioning prior surgery. Ancef 3 g given intravenously prior surgery. Patient draped with C drape and prepared and draped in a sterile fashion. Timeout performed confirming name, date of and procedure as primary section. Adequate level of anesthesia was confirmed. The was brought to the operating room. Injecting 20 mL of 0.5 % Marcaine in the subcutaneous area of the planned incision Pfannenstiel incision was made and care was sharp section to into the anterior fascia. The cavity was entered without difficulty bladder flap was created and pushed caudad. Low segment transverse was performed clear amnionic fluid upon entry into the amnionic cavity. The fetus was direct occiput posterior. The was delivered by carefully rotating the head and applying vacuum 2 and 15 seconds or less in the green. Delivery of the female liveborn at 1838 hrs. on Saturday07/14/2017. Dr. Monk medical office administrator present and cared for the . Weight 3100 g/6 lbs. 13 oz. Apgars 7/8. Routine cord blood collected from the three-vessel cord. The placenta was removed manually. Cervical patency assured. Sponge needle pack asthma sharp count correct times one. The uterine incision closed first closing a inferior left extension of the incision through the cervix using 0 Monocryl running locking suture. Subsequently the uterine incision closed with 0 Monocryl 2 first layer running locking closure with good hemostasis, second layer running locking suture. One additional figure-of- eight with 0 Monocryl for hemostasis. Both tubes and ovaries were normal. Clots were cleaned from the gutters and cul-de-sac. Uterus placed into the abdominal cavity. Sponge needle pack asthma sharp count correct 2. The uterine incision inspected no bleeding. The anterior fascia was then closed with #1 PDS. Subcutaneous tissue was irrigated and closed in 3 interrupted sutures of 0 Monocryl. Skin was approximated with 3-0 Monocryl Rancho needle. Dermabond Preneo applied. Clots were cleaned from the vagina. Patient transported postanesthesia care unit in satisfactory condition. No blood transfusions were required. Due to the inferior left cervical extension of the incision are recommended to the patient no /TOLAC attempt with future pregnancies, recommend repeat section. Brief History: [facility] . Post-Op/Procedure Note. [facility] [id number]. Date of : [birth year]Patient Status: Inpatient. Attending Provider: Cody Mckoyount Number: [id number]. Date: 07/14/17 19:35Initialization Date: 07/14/17 19:35. - General Post-Op/Procedure Note. Date of Surgery/Procedure: 07/14/17. Operative Procedure(s): Low segment transverse via Pfannenstiel incision (inferior cervical laceration sutured at time of surgery) (do not recommend VBACtrial of labor after ) vacuum extraction assisted 2 in the green less than 15 seconds. Pre Op Diagnosis: Failure to progress, decelerations and intolerance of labor, advanced maternal age, group B strep positive, history of anxiety and OCD, history of PVCs. Post-Op Diagnosis: Same plus inferior left extension of the incision into the cervix sutured, direct occiput posterior presentation. Anesthesia Technique: Epidural. Primary Surgeon: Cody Mckoy. Secondary Surgeon: Barney Dickerson Jr. Anesthesia Provider: Cosme Chang. Reason Global Program Director Was Necessary: Patient obese, difficulty of surgery, and to decrease cold comorbidity and co-mortality assist in surgery and retraction. Role of Global Program Director: Patient obese, difficulty of surgery, and to decrease cold comorbidity and co-mortality assist in surgery and retraction. Fluid Replacement, Intraop: 1,800. Output, Urine Amount: 250. EBL in mLs: 450. Drain/Tube Comments:: Del Castillo to gravity drainage closed system. Complications: None. Condition: Good. Free Text/Narrative:: Patient was transported to operating room #1 and placed under epidural anesthesia in the supine position with a wedge under the right hip and right flank. CDs in place and functioning prior surgery. Ancef 3 g given intravenously prior surgery. Patient draped with C drape and prepared and draped in a sterile fashion. Timeout performed confirming name, date of and procedure as primary section. Adequate level of anesthesia was confirmed. The was brought to the operating room. Injecting 20 mL of 0.5% Marcaine in the subcutaneous area of the planned incision Pfannenstiel incision was made and care was sharp section to into the anterior fascia. The cavity was entered without difficulty bladder flap was created and pushed caudad. Low segment transverse was performed clear amnionic fluid upon entry into the amnionic cavity. The fetus was direct occiput posterior. The was delivered by carefully rotating the head and applying vacuum 2 and 15 seconds or less in the green. Delivery of the female liveborn at [address] Monk medical office administrator present and cared for the . Weight 3100 g/6 lbs. 13 oz. Apgars 7/8. Routine cord blood collected from the three-vessel cord. The placenta was removed manually. Cervical patency assured. Sponge needle pack asthma sharp count correct times one. The uterine incision closed first closing a inferior left extension of the incision through the cervix using 0 Monocryl running locking suture. Subsequently the uterine incision closed with 0 Monocryl 2 first layer running locking closure with good hemostasis, second layer running locking suture. One additional [id number] with 0 Monocryl for hemostasis. Both tubes and ovaries were normal. Clots were cleaned from the gutters and cul-de-sac. Uterus placed into the abdominal cavity. Sponge needle pack asthma sharp count correct 2. The uterine incision inspected no bleeding. The anterior fascia was then closed with #1 PDS. Subcutaneous tissue was irrigated and closed in 3 interrupted sutures of 0 Monocryl. Skin was approximated with 3-0 Monocryl Rancho needle. Dermabond Preneo applied. Clots were cleaned from the vagina. Patient transported postanesthesia care unit in satisfactory condition. No blood transfusions were required. Due to the inferior left cervical extension of the incision are recommended to the patient no /TOLAC attempt with future pregnancies, recommend repeat section. - Discharge Data Discharge Date: 07/17/17 Discharge Disposition: Home, Self-Care 01 Condition: Good - Discharge Diagnosis/Problem(s) (1) 38 weeks gestation of SNOMED Code(s): 93758138 ICD Code: Z3A.38 - 38 WEEKS GESTATION OF Status: Acute Current Visit: Yes (2) AMA (advanced maternal age) primigravida 35+ SNOMED Code(s): 13024163 ICD Code: O09.519 - SUPERVISION OF ELDERLY PRIMIGRAVIDA, UNSPECIFIED TRIMESTER Status: Acute Current Visit: Yes Qualifiers: Trimester: third trimester Qualified Code(s): O09.513 - Supervision of elderly primigravida, third trimester (3) GBS carrier SNOMED Code(s): 6104660737334 ICD Code: Z22.330 - CARRIER OF GROUP B STREPTOCOCCUS Status: Acute Current Visit: Yes (4) Asymptomatic PVCs SNOMED Code(s): 53297325 ICD Code: I49.3 - VENTRICULAR PREMATURE DEPOLARIZATION Status: Acute Current Visit: Yes (5) Anxiety and depression SNOMED Code(s): 188179066 ICD Code: F41.8 - OTHER SPECIFIED ANXIETY DISORDERS Status: Acute Current Visit: Yes (6) OCD (obsessive compulsive disorder) SNOMED Code(s): 609479979 ICD Code: F42.9 - OBSESSIVE-COMPULSIVE DISORDER, UNSPECIFIED Status: Acute Current Visit: Yes Qualifiers: Obsessive-compulsive disorder type: mixed obsessional thoughts and acts Qualified Code(s): F42.2 - Mixed obsessional thoughts and acts - Patient Summary/Data Operative Procedure(s) Performed: Low segment transverse via Pfannenstiel incision (inferior cervical laceration sutured at time of surgery) (do not recommend VBACtrial of labor after ) vacuum extraction assisted 2 in the green less than 15 seconds Complications: None Consults: None with the exception of telemetry monitoring review by Dr. Jackson. (History of PVCs) Hospital Course: Uneventful - Patient Instructions Diet: Regular Diet as Tolerated Driving: Do Not Drive (2 weeks) Showering/Bathing: May Shower, No Tub Bathing/Swimming (6 weeks) Wound/Incision Care: Keep Operative Site/Wound Site Clean and Dry Notify Provider of: Fever, Increased Pain, Swelling and Redness, Drainage, Nausea and/or Vomiting - Discharge Plan Home Medications: Home Meds ARIPiprazole [Abilify] 10 mg PO DAILY 01/28/17 [History] clomiPRAMINE HCl [Clomipramine HCl] 50 mg PO DAILY 01/28/17 [History] fluvoxaMINE [Luvox] 300 mg PO DAILY 01/28/17 [History] Acetaminophen [Tylenol] 650 mg PO Q4H PRN tablet 07/17/17 [Rx] Docusate Sodium [Colace] 100 mg PO Q12H PRN cap 07/17/17 [Rx] Ibuprofen [IJD: Ibuprofen] 600 mg PO Q6H PRN tablet 07/17/17 [Rx] Lanolin [Lansinoh HPA] 1 applic TOP ASDIRECTED PRN tube 07/17/17 [Rx] Simethicone 80 mg PO PCBED tab.chew 07/17/17 [Rx] Referrals: Maria E Ayers MD [Physician] - (2 weeks) - Discharge Summary/Plan Comment DC Time >30 min.: No - Patient Data Vitals - Most Recent: Last Vital Signs Temp 98.2 F 07/17/17 03:57 Pulse 85 07/17/17 03:57 Resp 16 07/17/17 03:57 BP 127/78 07/17/17 03:57 Pulse Ox 98 07/17/17 03:57 Weight - Most Recent: 322 lb I&O - Last 24 hours: Intake & Output 07/16/17 07/16/17 07/17/17 14:59 22:59 06:59 Intake Total 0 Balance 0 Med Orders - Current: Current Medications Acetaminophen (Tylenol) 650 mg PO Q4H PRN PRN Reason: mild pain or fever Diphenhydramine HCl (Benadryl) 25 mg IVPUSH Q6H PRN PRN Reason: Itching or Nausea Docusate Sodium (Colace) 100 mg PO Q12H PRN PRN Reason: Constipation Emollient Ointment (Lansinoh Hpa) 0 gm TOP ASDIRECTED PRN PRN Reason: Sore Nipples Ephedrine Sulfate (Ephedrine Sulfate) 5 mg IVPUSH SEECOMMENT PRN PRN Reason: Other Ibuprofen (Motrin) 600 mg PO Q6H PRN PRN Reason: mild pain or fever Last Admin: 07/17/17 06:13 Dose: 600 mg Naloxone HCl (Narcan) 0.1 mg IVPUSH SEECOMMENT PRN PRN Reason: Respiratory Depression Aripiprazole 10 Mg (Tab Own Med) 10 mg PO DAILY [facility] Last Admin: 07/16/17 10:28 Dose: 10 mg Clomipramine Hcl 50 Mg Capsule Own Med 50 mg PO DAILY [facility] Last Admin: 07/16/17 10:29 Dose: 50 mg Fluvoxamine Er ( Luvox Cr) 150 Mg Cap Own Med 300 mg PO DAILY [facility] Last Admin: 07/16/17 10:28 Dose: 300 mg Ondansetron HCl (Zofran) 4 mg IV Q8H PRN PRN Reason: Nausea/Vomiting Oxycodone/Acetaminophen (Percocet 325-5 Mg) 2 tab PO Q4H PRN PRN Reason: Pain (moderate 4-6) Simethicone (Simethicone) 80 mg PO PCBED [facility] Last Admin: 07/16/17 21:07 Dose: 80 mg Sodium Chloride (Saline Flush) 10 ml FLUSH ASDIRECTED PRN PRN Reason: Keep Vein Open Discontinued Medications Aripiprazole (Abilify) 10 mg PO DAILY [facility] Last Admin: 07/14/17 10:00 Dose: 10 mg Bupivacaine HCl (Marcaine 0.5%) Confirm Administered Dose 30 ml .ROUTE .STK-MED ONE Stop: 07/14/17 17:46 Last Admin: 07/14/17 18:33 Dose: 20 ml Bupivacaine HCl (Sensorcaine-Mpf 0.25%) 10 ml .ROUTE .STK-MED ONE Stop: 07/14/17 22:23 Cefazolin Sodium (Ancef) Confirm Administered Dose 2 gm .ROUTE .STK-MED ONE Stop: 07/14/17 18:07 Cefazolin Sodium (Ancef) Confirm Administered Dose 1 gm .ROUTE .STK-MED ONE Stop: 07/14/17 18:44 Citric Acid/Sodium Citrate (Bicitra Solution) 30 ml PO ONETIME ONE Stop: 07/14/17 17:57 Last Admin: 07/14/17 18:15 Dose: 30 ml Citric Acid/Sodium Citrate (Bicitra Solution) Confirm Administered Dose 30 ml .ROUTE .STK-MED ONE Stop: 07/14/17 18:11 Last Admin: 07/14/17 19:56 Dose: Not Given Diphenhydramine HCl (Benadryl) 25 mg IVPUSH Q6H PRN PRN Reason: Itching Diphenhydramine HCl (Benadryl) 25 mg IVPUSH Q6H PRN PRN Reason: Itching Ephedrine Sulfate (Ephedrine Sulfate) 5 mg IVPUSH ASDIRECTED PRN PRN Reason: HYPOTENTSION Fentanyl (Sublimaze) 100 mcg EPIDUR Q3H PRN PRN Reason: PAIN Last Admin: 07/14/17 08:26 Dose: 100 mcg Fentanyl (Sublimaze) 50 mcg IVPUSH Q5M PRN PRN Reason: PAIN Fentanyl/Bupivacaine HCl (Fentanyl/Bupivacaine/Ns 2 Mcg-0.125% 100 Ml) 100 ml EPIDUR ASDIRECTED [facility] Last Admin: 07/14/17 15:46 Dose: 100 ml Ampicillin Sodium 2 gm/ Sodium (Chloride) 100 mls @ 200 mls/hr IV ONETIME ONE Stop: 07/14/17 04:29 Last Admin: 07/14/17 04:50 Dose: 200 mls/hr Ampicillin Sodium 1 gm/ Sodium (Chloride) 100 mls @ 200 mls/hr IV Q4H [facility] Last Admin: 07/14/17 21:28 Dose: Not Given Lactated Ringer's (Ringers, Lactated) 1,000 mls @ 100 mls/hr IV ASDIRECTED [facility] Last Admin: 07/14/17 15:45 Dose: 100 mls/hr Oxytocin/Lactated Ringer's (Pitocin In Lr 10 Units/1,000 Ml) 10 unit in 1,000 mls @ 12 mls/hr IV TITRATE WILEY; 2 MUNITS/MIN PRN Reason: Protocol Last Titration: 07/14/17 17:20 Dose: 0 munits/min, 0 mls/hr Oxytocin 20 unit/ Lactated (Ringer's) 1,002 mls @ 1,503 mls/hr IV TITRATE WILEY; 500 MUNITS/MIN PRN Reason: Protocol Cefazolin Sodium/Dextrose 2 gm (/ Premix) 50 mls @ 100 mls/hr IV ONETIME ONE Stop: 07/14/17 18:27 Last Admin: 07/14/17 19:57 Dose: Not Given Lactated Ringer's (Ringers, Lactated) Confirm Administered Dose 1,000 mls @ as directed .ROUTE .STK-MED ONE Stop: 07/14/17 18:59 Dextrose/Lactated Ringer's (Dextrose 5%-Lactated Ringers) 1,000 mls @ 125 mls/ hr IV ASDIRECTED [facility] Stop: 07/15/17 04:53 Last Admin: 07/14/17 23:52 Dose: 125 mls/hr Ketorolac Tromethamine (Toradol) Confirm Administered Dose 30 mg .ROUTE .STK- MED ONE Stop: 07/14/17 18:57 Ketorolac Tromethamine (Toradol) 30 mg IVPUSH Q6H [facility] Stop: 07/15/17 13:01 Last Admin: 07/15/17 12:51 Dose: 30 mg Lidocaine HCl (Xylocaine 1%) 50 ml INJECT ONETIME ONE Stop: 07/14/17 03:38 Last Admin: 07/14/17 12:18 Dose: 50 ml Lidocaine/Epinephrine (Xylocaine-Mpf 2%-Epi 1:200,000) Confirm Administered Dose 20 ml .ROUTE .STK-MED ONE Stop: 07/14/17 18:14 Metoclopramide HCl (Reglan) 10 mg IVPUSH ONETIME ONE Stop: 07/14/17 17:57 Last Admin: 07/14/17 18:15 Dose: 10 mg Metoclopramide HCl (Reglan) Confirm Administered Dose 10 mg .ROUTE .STK-MED ONE Stop: 07/14/17 18:11 Last Admin: 07/14/17 19:56 Dose: Not Given Fluvoxamine Er 150mg (0wn Med) 2 each PO DAILY [facility] Last Admin: 07/14/17 10:00 Dose: 2 each Clomipramine 50mg (Own Med) 1 each PO DAILY [facility] Last Admin: 07/14/17 10:00 Dose: 1 each Oxytocin (Pitocin) Confirm Administered Dose 10 unit .ROUTE .STK-MED ONE Stop: 07/14/17 18:50 Phenylephrine HCl (Jaydon-Synephrine) Confirm Administered Dose 10 mg .ROUTE .STK- MED ONE Stop: 07/14/17 18:07 Sodium Chloride (Saline Flush) 10 ml FLUSH ASDIRECTED PRN PRN Reason: Keep Vein Open *Q Meaningful Use (DIS) - VTE *Q VTE Criteria *Q: - Stroke *Q Stroke Criteria *Q: - AMI *Q AMI Criteria *Q:
== END 2017-07-17 10:45 | disposition home or self-care (01) | DRG 540 ==
LOC: JD.OBCHECK 02:10 → JD.OB 02:10 → JD.OBCHECK 03:36 → JD.OB 03:37 → OBSVTOIN 18:38 → JD.OB 18:38
PROVIDERS: ADMIT Obstetrics & Gynecology; ATTEND Obstetrics & Gynecology
PROC: 10D00Z1 Extraction of Products of Conception, Low, Open Approach (ICD-10-PCS; principal; 2017-07-14)
PROC: 00HU33Z Insertion of Infusion Device into Spinal Canal, Percutaneous Approach (ICD-10-PCS; 2017-07-14)
PROC: 3E0R3BZ Introduction of Anesthetic Agent into Spinal Canal, Percutaneous Approach (ICD-10-PCS; 2017-07-14)
DX: O42.02 Full-term premature rupture of membranes, onset of labor within 24 hours of rupture (principal); Z3A.39 39 weeks gestation of pregnancy; Z37.0 Single live birth; O99.824 Streptococcus B carrier state complicating childbirth; O99.344 Other mental disorders complicating childbirth; F41.8 Other specified anxiety disorders; F42.9 Obsessive-compulsive disorder, unspecified; O76 Abnormality in fetal heart rate and rhythm complicating labor and delivery; O62.0 Primary inadequate contractions; Z79.899 Other long term (current) drug therapy
CPT/HCPCS: 01967; 01968; 36415; 51702; 84112; 85025; 86850; 86900; 86901; 94762; A9270-GY; J0290; J0690; J1885; J2274; J2370; J2590; J2765; J3010; J7030; J7042; J7120

== ENCOUNTER 2018-02-01 10:56 | Emergency (ER) | payer BC ==
--- NOTE | 2018-02-01 11:44 | EDM.PDOC ---
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 Patient is a . Reports her last menstrual period was on January 01. She gave to a baby girl on July 14, 2017 no complications. Patient reports that on January 24 she had 2 positive at home urine test. She states that this was not a planned . She reports last night but she developed cramping pain around 10 PM last night. States that it started on the left side but now involves both sides of her pelvis and into the left side of her back. She denies any lightheadedness, dizziness, syncope, dysuria, change in urine odor color, hematuria, vaginal bleeding, diarrhea or constipation. Reports her last bowel movement was this morning. She denies any blood in her stool. She has not taken anything for the pain thus far. Review of her records show that her blood type is O+. Left Lower Abdominal Pain Score (Numeric/FACES): 3 - Related Data Allergies Allergy/AdvReac Type Severity Reaction Status Date / Time No Known Allergies Allergy Verified 02/01/18 11:07 Home Meds: Home Meds ARIPiprazole [Abilify] 10 mg PO DAILY 01/28/17 [History] clomiPRAMINE HCl [Clomipramine HCl] 50 mg PO DAILY 01/28/17 [History] fluvoxaMINE [Luvox] 300 mg PO DAILY 01/28/17 [History] Acetaminophen [Tylenol] 650 mg PO Q4H PRN tablet 07/17/17 [Rx] Juice Plus 1 tab PO DAILY 02/01/18 [History] Vits #93/Iron Fum/FA [ Formula Tablet] 1 each PO DAILY [History] Past Medical History - Past Health History Medical/Surgical History: Denies Medical/Surgical History Cardiovascular History: Reports: Arrhythmia, Hypertension Other Cardiovascular History: Dxed with PVCs following Holter monitor evaluation along with "irregularly irreg pulse rhythm"--no follow up or medication required per pt and per exam. HTN dx as a teen, none since age 18 Gastrointestinal History: Reports: Chronic Constipation, GERD Other Gastrointestinal History: Since infancy. Takes no medications. 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 Psychiatric History: Reports: Anxiety, Depression, OCD - Past Surgical History HEENT Surgical History: Reports: Oral Surgery Other HEENT Surgeries/Procedures: [place] teeth removed 1995 Cardiovascular Surgical History: Reports: None GI Surgical History: Reports: None Female Surgical History: Reports: Section Neurological Surgical History: Reports: None Social & Family History - Family History Family Medical History: Noncontributory - Tobacco Use Smoking Status *Q: Never Smoker Second Hand Smoke Exposure: Yes - Caffeine Use Caffeine Use: Reports: Coffee Other Caffeine Use: 1/2 cup daily - Recreational Drug Use Recreational Drug Use: No - Living Situation & Occupation Living situation: Reports: Occupation: Unemployed ED ROS GENERAL - Review of Systems Review Of Systems: See Below Cardiovascular: Denies: Lightheadedness GI/Abdominal: Denies: Constipation, Hematochezia, Melena : Reports: Pain (reports pelvic cramping initally on the left now on both sides and into her left back), Other (denies any vaginal bleeding). Denies: Dysuria, Hematuria Neurological: Denies: Dizziness, Syncope ED EXAM - Physical Exam Exam: See Below Exam Limited By: No Limitations General Appearance: Alert, WD/WN, No Apparent Distress, Obese Respiratory/Chest: No Respiratory Distress, Lungs Clear, Normal Breath Sounds Cardiovascular: Normal Peripheral Pulses, Regular Rate, Rhythm, No Murmur GI/Abdominal Exam: Normal Bowel Sounds, Soft, Tender (mild to the suprapubic, RLQ and LLQ) Back Exam: Normal Inspection. No: CVA Tenderness (L), CVA Tenderness (R) Neurological: Alert, Oriented, Normal Cognition Psychiatric: Normal Affect, Normal Mood Skin Exam: Warm, Dry, Normal Color Course - Vital Signs Last Recorded V/S: Last Vital Signs Temp 98.0 F 02/01/18 14:26 Pulse 95 02/01/18 14:26 Resp 18 02/01/18 14:26 BP 142/103 H 02/01/18 14:26 Pulse Ox 100 02/01/18 14:26 - Orders/Labs/Meds Orders: Active Orders 24 hr Category Date Time Status OB Transvaginal [US] Stat Exams 02/01/18 12:18 Taken UA W/MICROSCOPIC [URIN] Stat Lab 02/01/18 11:35 Ordered Labs: Laboratory Tests 02/01/18 02/01/18 02/01/18 Range/Units 11:35 11:46 11:46 WBC 7.66 (3.98-10.04) K/mm3 RBC 5.23 H (3.98-5.22) M/mm3 Hgb 13.9 (11.2-15.7) gm/L Hct 41.4 (34.1-44.9) % MCV 79.2 L (79.4-94.8) fl MCH 26.6 (25.6-32.2) pg MCHC 33.6 (32.2-35.5) g/dl RDW Std Deviation 40.7 (36.4-46.3) fL Plt Count 262 (182-369) K/mm3 MPV 9.2 L (9.4-12.3) fl Neut % (Auto) 52.4 (34.0-71.1) % Lymph % (Auto) 36.0 (19.3-51.7) % [place] % (Auto) 6.7 (4.7-12.5) % Eos % (Auto) 3.8 (0.7-5.8) Baso % (Auto) 0.4 (0.1-1.2) % Neut # (Auto) 4.02 (1.56-6.13) K/mm3 Lymph # (Auto) 2.76 (1.18-3.74) K/mm3 [place] # (Auto) 0.51 H (0.24-0.36) K/mm3 Eos # (Auto) 0.29 (0.04-0.36) K/mm3 Baso # (Auto) 0.03 (0.01-0.08) K/mm3 HCG, Quant 382.0 mIU/mL Urine Color Yellow (Yellow) Urine Appearance Clear (Clear) Urine pH 6.5 (5.0-8.0) Ur Specific [place] 1.025 (1.005-1.030) Urine Protein Negative (Negative) Urine Glucose (UA) Negative (Negative) Urine Ketones Negative (Negative) Urine Occult Blood Negative (Negative) Urine Nitrite Negative (Negative) Urine Bilirubin Negative (Negative) Urine Urobilinogen 0.2 (0.2-1.0) Ur Leukocyte Esterase Trace H (Negative) Urine RBC Not seen (0-5) /hpf Urine WBC 0-5 (0-5) /hpf Ur Epithelial Cells 10-20 H (0-5) /hpf Urine Bacteria Not seen (FEW) /hpf Urine Mucus Not seen (FEW) /hpf - Radiology Interpretation Free Text/Narrative:: transvaginal ultrasound impression per vard: no gestational sac is noted within the uterus. Findings are consistent with early , however ectopic cannot be completely excluded. - Re-Assessments/Exams Free Text/Narrative Re-Assessment/Exam: 02/01/18 14:04 Reviewed the ultrasound and labs results with the patient. Too early to tell if healthy vs. possible etopic. Low suspicion for ectopic at this point. Recommend close follow-up with ob for serial HCGs and possibly a follow-up ultrasound. Patient was offered pain medication throughout ER stay but declined. Will discharge home today. Given return precautions. Discharge instructions as documented. Departure - Departure Time of Disposition: 14:05 Disposition: Home, Self-Care 01 Condition: Good Clinical Impression: Qualifiers: Weeks of gestation: 15 weeks Qualified Code(s): Z3A.15 - 15 weeks gestation of - Discharge Information *PRESCRIPTION DRUG MONITORING PROGRAM REVIEWED*: No *COPY OF PRESCRIPTION DRUG MONITORING REPORT IN PATIENT RAFY: No Referrals: PCP,None [Primary Care Provider] - Maria E Ayers MD [Physician] - Forms: ED Department Discharge Additional Instructions: Follow-up Saturday with your Ob provider. Recommend having your HCG rechecked Saturday to ensure it is doubling. May need follow-up ultrasound depending on your symptoms. May take tylenol as needed for pain relief. Please return to the ER should your symptoms change or worsen. In particular we would like to see you for lightheadedness, syncope, vaginal bleeding or any other concerning symptom. - My Orders Last 24 Hours: My Active Orders 02/01/18 11:35 UA W/MICROSCOPIC [URIN] Stat 02/01/18 12:18 OB Transvaginal [US] Stat - Assessment/Plan Last 24 Hours: My Active Orders 02/01/18 11:35 UA W/MICROSCOPIC [URIN] Stat 02/01/18 12:18 OB Transvaginal [US] Stat
[2018-02-01 14:27] VITALS: BP 142/103
--- NOTE | 2018-02-02 11:01 | US ---
First trimester obstetrical ultrasound: Multiple real-time images were obtained transvaginally. Echogenic material is seen within the endometrial cavity presumably due to blood. No gestational sac is seen. Two complex small cysts are noted within the left ovary measuring 2.2 cm and 2.2 cm. No adnexal abnormalities are appreciated. Impression: 1. Echogenic material within the endometrial cavity possibly due to blood. 2. No gestational sac is seen at this time. 3. Two small complicated cysts within the left ovary. Note: If patient continues to have positive beta hCG, recommend follow-up ultrasound study in 11-14 days to confirm . Diagnostic code #3 I agree with preliminary report issued by Sophie ([facility] report finalized on 02/01/18, 2:55 PM Central Time)
== END 2018-02-01 14:25 | disposition home or self-care (01) ==
LOC: JD.ED 10:56
DX: O99.89 Other specified diseases and conditions complicating pregnancy, childbirth and the puerperium (principal); R10.32 Left lower quadrant pain; O10.911 Unspecified pre-existing hypertension complicating pregnancy, first trimester; Z79.899 Other long term (current) drug therapy; Z3A.01 Less than 8 weeks gestation of pregnancy
CPT/HCPCS: 36415; 76817; 76817-26; 81001; 84702; 85025; 99284; 99284-25